=== PATIENT | female | born 1940 | race Caucasian/White ===

== ENCOUNTER 2022-05-26 19:23 | Emergency (ER) | payer MEDICARE, BC ==
[~2022-05-26] VITALS: Ht 165.1 cm; Wt 93.0 kg
--- NOTE | 2022-05-26 22:47 | NUR ---
DR NESS INTO EVAL PATIENT.
--- NOTE | 2022-05-26 23:00 | NUR ---
Patient discharged to home in stable condition. Written and verbal after care instructions given. Patient verbalizes understanding of instructions. Stressed follow up or return to ER for worsening s/s. Patient is a/ox4, NAD noted. Patient is accompanied by her daughter
[2022-05-27 02:04] VITALS: BP 133/67
== END 2022-05-26 23:30 | disposition home or self-care (01) ==
LOC: ER 19:23
DX: S00.83XA Contusion of other part of head, initial encounter (principal); S09.90XA Unspecified injury of head, initial encounter; W19.XXXA Unspecified fall, initial encounter; Y92.89 Other specified places as the place of occurrence of the external cause; E11.51 Type 2 diabetes mellitus with diabetic peripheral angiopathy without gangrene; M48.00 Spinal stenosis, site unspecified; M19.90 Unspecified osteoarthritis, unspecified site; E78.5 Hyperlipidemia, unspecified; S80.212A Abrasion, left knee, initial encounter; S80.211A Abrasion, right knee, initial encounter; Z88.8 Allergy status to other drugs, medicaments and biological substances
CPT/HCPCS: 70450; A4663